=== PATIENT | male | born 1955 | race Caucasian/White ===

== ENCOUNTER 2021-01-06 06:05 | Emergency (ER) | payer MEDICARE, BC, OTHER, SELFPAY ==
[2021-01-06] VITALS (11 sets, daily range): BP systolic 147–169; BP diastolic 94–105; PULSE 94–105; RESP 14–23; TEMP 36.3–36.5; O2SAT 97–100
--- NOTE | 2021-01-06 | ECG_ITS ---
Measurements Intervals [place] Rate: 102 P: 16 MN: 127 QRS: 253 QRSD: 138 T: 42 QT: 364 QTc: 474 Interpretive Statements SINUS TACHYCARDIA RIGHT AXIS DEVIATION RIGHT BUNDLE BRANCH BLOCK BASELINE ARTIFACT- I, III, AVL, V2 ABNORMAL ECG Electronically Signed On 01-06-2021 11:02:55 SECURITIES SUPERVISOR by Santana Rios D.O.
--- NOTE | ~2021-01-06 | XR_ITS ---
EXAMINATION: XR chest 1V portable DATE: 01/06/2021 06:26 INDICATION: Stroke. TECHNIQUE: A single frontal view of the chest was obtained. COMPARISON: Chest 2 views 08/12/2008 FINDINGS: The chest demonstrates clear lungs without pneumonia, pleural effusion, or pneumothorax. Th e heart size is normal. IMPRESSION: 1. No acute cardiopulmonary disease. Reviewed, dictated and finalized at location A. ENDER SERVER
--- NOTE | ~2021-01-06 | CT_ITS ---
EXAMINATION: CT brain wo con DATE: 01/06/2021 06:15 INDICATION: Stroke. TECHNIQUE: Computed tomography (CT) of the head was performed without intravenous contrast. The mA wa s adjusted according to patient size. Iterative reconstruction technique was employed. The dose-lengt h product was 756.67 mGy-cm. COMPARISON: None FINDINGS: There is mild motion artifact. There is an old infarct involving the right caudate nucleus and right internal capsule. There are scattered areas of low attenuation in the cerebral white matter , which is within normal limits for the patient's age. There is no intracranial hemorrhage, acute inf arction, or abnormal intracranial mass lesion. There is mild ex vacuo dilatation of body of right lat eral ventricle. There is a left mastoid effusion. There is a right otomastoid effusion. There is an o ld blowout fracture of medial wall left orbit. There is mucosal thickening in the paranasal sinuses. IMPRESSION: 1. 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 Reviewed, dictated and finalized at location A. LE OBIEE DEVELOPER
--- NOTE | 2021-01-06 06:20 | ED.NEUROSD ---
HPI - Neuro Symptoms/Deficit General Chief Complaint: Suspected CVA Stated Complaint: weakness Time Seen by Provider: 01/06/21 06:08 History of Present Illness HPI Narrative: Patient is a 65-year-old male who presents the ER with concerns for strokelike symptoms. Reports symptom onset at 4:50 AM. Reports he had trouble sleeping last night and he had been awake. Reports he suddenly was unable to move his right arm. Patient is not on blood thinners and has no previous history of CVA. He has paralysis of the right upper extremity and right lower extremity as well as right facial droop and slurred speech. Related Data Home Medications Medication Instructions Recorded Confirmed acetaminophen 01/06/21 alogliptin mg 01/06/21 atorvastatin 01/06/21 calcium carbonate-vitamin D3 tablet PO 01/06/21 [Calcium with Vitamin D] docusate calcium mg PO 01/06/21 fluoxetine 01/06/21 hydrochlorothiazide 01/06/21 ipratropium-albuterol [Combivent INHALATION 01/06/21 Respimat] magnesium tablet PO 01/06/21 meloxicam 01/06/21 metformin mg 01/06/21 omeprazole PO 01/06/21 polyethylene glycol 3350 [Miralax] 01/06/21 Allergies Allergy/AdvReac Type Severity Reaction Status Date / Time No Known Allergies Allergy Mild Verified 01/06/21 06:32 Review of Systems Review of Systems: All systems reviewed & are unremarkable except as noted in HPI and below Cardiovascular: Cardiovascular: Denies chest pain, Denies rapid heart rate and Denies leg edema Respiratory: Respiratory: Denies cough, Denies dyspnea and Denies wheezing Gastrointestinal: Gastrointestinal: Denies abdominal pain, Denies diarrhea, Denies nausea and Denies vomiting Musculoskeletal: Musculoskeletal: Denies arthralgias and Denies muscle cramps Neurologic: Reports Abnormal speech present, Denies headache(s), Reports focal weakness and Denies numbness PMFSH Past Medical History Medical History (Updated 01/06/21 @ 07:00 by Vimal Worthington MD) Diabetes Hyperlipidemia Hypertension Surgical History Surgical History (Updated 01/06/21 @ 06:24 by Vimal Worthington MD) History of excision of epidermal inclusion cyst Social History Social History (Updated 01/06/21 @ 06:24 by Vimal Worthington MD) Social History: History of tobacco abuse Exam Narrative: Exam Narrative: GENERAL: Well-appearing, well-nourished, and in no acute distress. HEAD: Normocephalic, atraumatic. EYES: PERRL and EOMI. ENT: Mucous membranes moist. CHEST: Clear to auscultation. No respiratory distress. HEART: Tachycardic and regular. Normal peripheral pulses. ABDOMEN: Soft, nontender, nondistended. EXTREMITIES: Normal range of motion. No edema. SKIN: Warm, dry, no rash. NEURO: Please see quality section of chart for NIH stroke scale which is 13. Patient with paralysis to right upper and lower extremities as well as right facial droop with slurred speech. Unable to perform finger-nose testing and [id number] testing on the right side. Alert and oriented x3. Course Reevaluation(s) Reevaluation #1: Accepted by Dr. Haynes with Neurology and Dr. Bean in the ER at [facility]. Dr. Haynes recommended Labetalol 10mg for elevated BP. Pt educated on risks/benefits for TPA. Date: 01/06/21 Time: 06:58 Vital Signs Vital signs: Vital Signs Temperature 97.4 F L 01/06/21 06:11 Pulse Rate 100 01/06/21 06:11 Respiratory Rate 17 01/06/21 06:11 Blood Pressure 153/104 H 01/06/21 06:11 Pulse Oximetry 99 01/06/21 06:11 Temperature 97.4 F L 01/06/21 06:11 Pulse Rate 94 01/06/21 06:53 Respiratory Rate 19 01/06/21 06:53 Blood Pressure 169/96 H 01/06/21 06:53 Pulse Oximetry 99 01/06/21 06:53 MDM - Neuro Symptoms/Deficit Lab Data Result diagrams: 01/06/21 06:37 01/06/21 06:37 Labs: Lab Results 01/06/21 01/06/21 01/06/21 Range/Units 06:37 06:37 06:37 WBC 15.6 H (4.5-10.0) K/mm3 RBC 5.39 (4.6-6.20) M/mm3 Hgb
--- NOTE | 2021-01-06 06:23 | PC.NURSE ---
Bedside glucose is 278.
[2021-01-06 06:48] LABS: Basophils Absolute Auto 0.1 K/mm3 (0.0-0.1); Basophils Percent Auto 0.8 % (0.2-1.2); Eosinophils Absolute Auto 0.3 K/mm3 (0-0.3); Eosinophils Percent Auto 2.2 % (0-4.4); Hematocrit 46.5 % (42.0-52.0); Hemoglobin 16.2 g/dL (14.0-18.0); Immature Granulocyte Absolute 0.06 K/mm3 (0.00-0.031); Immature Granulocyte Percent A 0.4 % (0-0.5); Lymphocytes Absolute Auto 4.02 K/mm3 (0.9-3.2); Lymphocytes Percent Auto 25.9 % (18.3-44.2); Mean Corpuscular HGB Conc 34.8 g/dl (32-36); Mean Corpuscular Hemoglobin 30.1 pg (26-34); Mean Corpuscular Volume 86.3 fl (80-100); Mean Platelet Volume 9.8 fl (7.4-10.4); Monocytes Absolute Auto 1.4 K/mm3 (0.1-0.6); Monocytes Percent Auto 8.9 % (2.6-8.5); Neutrophils Absolute Auto 9.6 K/mm3 (1.3-6.7); Neutrophils Percent Auto 61.8 % (45.5-73.1); Platelet Count Result 402 k/mm3 (150-375); Red Blood Count 5.39 M/mm3 (4.6-6.20); Red Cell Distribution Width 13.2 % (11.5-14.5); White Blood Count 15.6 K/mm3 (4.5-10.0)
[2021-01-06] MEDS: LABETALOL HCL INJ 100 MG/20 ML VIAL 10 MG IV PUSH (06:49)
[2021-01-06 06:57] LABS: Anion Gap 7 mmol/L (8-16); Blood Urea Nitrogen 16 mg/dL (9-20); Calcium 9.4 mg/dL (8.4-10.2); Carbon Dioxide 28 mmol/L (22-30); Chloride 99 mmol/L (98-107); Estimated CRCL calculation 91 ml/min; Estimated Glomerular Filt Rate > 60; Glucose 270 mg/dL (75-110); Potassium 4.3 mmol/L (3.4-5.0); Sodium 134 mmol/L (137-145)
[2021-01-06 06:58] LABS: INR 0.9; Prothrombin Time 12.6 Seconds (11.1-14.7)
[2021-01-06 06:59] LABS: Partial Thromboplastin Time 28.3 SECONDS (22.3-36.8)
[2021-01-06 07:08] LABS: Troponin I < 0.012 ng/mL (0.000-0.034)
--- NOTE | 2021-01-06 07:10 | PC.NURSE ---
[address] [facility] per give TPA. Patient given TPA per protocol.
[2021-01-06 10:04] LABS: Glucose Point of Care 278 (65-105)
== END 2021-01-06 07:33 | disposition short-term general hospital (02) ==
PROVIDERS: Emergency Provider Emergency Medicine; PCP Family Medicine
DX: I63.9 Cerebral infarction, unspecified (principal); R29.713 NIHSS score 13; E11.9 Type 2 diabetes mellitus without complications; E78.5 Hyperlipidemia, unspecified; I10 Essential (primary) hypertension; Z79.84 Long term (current) use of oral hypoglycemic drugs; Z87.891 Personal history of nicotine dependence
CPT/HCPCS: 36415; 37195; 70450; 71045; 80048; 82948; 84484; 85025; 85610; 85730; 93005; 96374; 99285; J2997

== ENCOUNTER 2022-08-12 13:42 | Emergency (ER) | payer OTHER, BC, SELFPAY ==
--- NOTE | ~2022-08-12 | XR_ITS ---
EXAMINATION: XR chest 2V DATE: 08/12/2022 15:04 INDICATION: Cough and shortness of breath. TECHNIQUE: Frontal and lateral views of the chest were obtained. COMPARISON: Chest single view 01/06/2021 FINDINGS: The chest demonstrates clear lungs without pneumonia, pleural effusion, or pneumothorax. Th e heart size is normal. There is an electronic implant in left anterior chest wall. IMPRESSION: 1. No acute cardiopulmonary disease. Reviewed, dictated and finalized at location A.
[2022-08-12 14:15] VITALS: BP 145/91; PULSE 87; RESP 18; TEMP 36.1; O2SAT 98
--- NOTE | 2022-08-12 15:44 | ED.URI ---
HPI - URI/Sore Throat General Chief Complaint: Upper Respiratory Infection Stated Complaint: cough Time Seen by Provider: 08/12/22 15:24 History of Present Illness HPI Narrative: 67 year old male who smokes 1.5 ppd for 50+ years presents to the ER for evaluation of unproductive cough. States was seen at [place] [facility] for similar symptoms 4 weeks ago. He was told at that time he had pneumonia. Completed a course of ABX. Has not taken any medications for his cough. Regularly takes combivent for his COPD. Related Data Home Medications Medication Instructions Recorded Confirmed acetaminophen 325 mg tablet 01/06/21 alogliptin 25 mg tablet mg 01/06/21 atorvastatin 20 mg tablet 01/06/21 calcium carbonate 600 mg-vitamin tablet PO 01/06/21 D3 10 mcg (400 unit) tablet (Calcium with Vitamin D) docusate calcium 50 mg capsule mg PO 01/06/21 fluoxetine 01/06/21 hydrochlorothiazide 25 mg tablet 01/06/21 ipratropium 20 mcg-albuterol 100 inhalation 01/06/21 mcg/actuation mist for inhalation (Combivent Respimat) magnesium tablet PO 01/06/21 meloxicam 15 mg tablet 01/06/21 metformin 1,000 mg tablet mg 01/06/21 omeprazole 20 mg tablet,delayed PO 01/06/21 release polyethylene glycol 3350 17 gram 01/06/21 oral powder packet (Miralax) Allergies Allergy/AdvReac Type Severity Reaction Status Date / Time No Known Allergies Allergy Mild Verified 01/06/21 06:32 Review of Systems Review of Systems: CONSTITUTIONAL: Denies fever, chills, or sweats. EYES: Denies visual changes, redness, or discharge. ENT: Denies rhinorrhea, congestion, sore throat, or otalgia. CARDIOVASCULAR: Denies chest pain, palpitations, or edema. RESPIRATORY: Reports cough GASTROINTESTINAL: Denies abdominal pain, nausea, vomiting, or diarrhea. GENITOURINARY: Denies dysuria or hematuria. SKIN: Denies rash or itching. MUSCULOSKELETAL: Denies back pain, joint pain, or myalgia. NEUROLOGIC: Denies headache, numbness, dizziness, or weakness. PSYCHIATRIC: Denies anxiety or depression. [facility] Past Medical History Medical History (Updated 08/12/22 @ 17:01 by Norman Garcia, TREATMENT COORDINATOR) Diabetes Hyperlipidemia Hypertension Surgical History Surgical History (Updated 01/06/21 @ 06:24 by Vimal Worthington MD) History of excision of epidermal inclusion cyst Social History Social History (Updated 01/06/21 @ 06:24 by Vimal Worthington MD) Social History: History of tobacco abuse Exam Narrative: GENERAL: Well-appearing, well-nourished, no physical limitations, and in no acute distress. HEAD: Normocephalic, atraumatic. EYES: Conjunctivae normal, PERRLA and EOMI. ENT: External nose normal, Nares clear, no rhinorrhea or epistaxis. Mucous membranes moist. Oropharynx without tonsillar hypertrophy exudate or other lesions. External ears normal, bilateral TMs normal bilaterally NECK: Supple. No meningeal signs. No adenopathy or masses. No carotid bruits or JVD CHEST: Clear to auscultation. No respiratory distress. No wheezes rales or rhonchi. HEART: Regular rate and rhythm. No murmur heard. Normal peripheral pulses. EXTREMITIES: Normal range of motion. No edema. Clubbing fingernails SKIN: Warm, dry, no rash. No noted wounds NEURO: No focal deficits. Alert and oriented x3. MAEW. CN's II-XI intact bilaterally PSYCH: Cooperative. Normal mood and affect. Course Vital Signs Vital signs: Vital Signs Temperature 36.1 C L 08/12/22 14:15 Pulse Rate 87 08/12/22 14:15 Respiratory Rate 18 08/12/22 14:15 Blood Pressure 145/91 H 08/12/22 14:15 Pulse Oximetry 98 08/12/22 14:15 Oxygen Delivery Room Air 08/12/22 14:15 Temperature 36.1 C L 08/12/22 14:15 Pulse Rate 86 08/12/22 15:59 Respiratory Rate 18 08/12/22 15:59 Blood Pressure 142/83 H 08/12/22 15:59 Pulse Oximetry 96 08/12/22 15:59 Oxygen Delivery Room Air 08/12/22 14:15 MDM - URI/Sore Throat Lab Data Result diagrams: 08/12/22 15:4
[2022-08-12 15:58] LABS: Basophils Absolute Auto 0.1 K/mm3 (0.0-0.1); Basophils Percent Auto 0.6 % (0.2-1.2); Eosinophils Absolute Auto 0.3 K/mm3 (0-0.3); Eosinophils Percent Auto 2.6 % (0-4.4); Hematocrit 43.7 % (42.0-52.0); Hemoglobin 14.3 g/dL (14.0-18.0); Immature Granulocyte Absolute 0.04 K/mm3 (0.00-0.031); Immature Granulocyte Percent A 0.3 % (0-0.5); Lymphocytes Absolute Auto 3.43 K/mm3 (0.9-3.2); Mean Corpuscular HGB Conc 32.7 g/dl (32-36); Mean Corpuscular Hemoglobin 31.1 pg (26-34); Mean Platelet Volume 9.5 fl (7.4-10.4); Monocytes Absolute Auto 0.9 K/mm3 (0.1-0.6); Monocytes Percent Auto 7.7 % (2.6-8.5); Neutrophils Absolute Auto 7.1 K/mm3 (1.3-6.7); Neutrophils Percent Auto 59.8 % (45.5-73.1); Platelet Count Result 364 k/mm3 (150-375); Red Cell Distribution Width 13.6 % (11.5-14.5); White Blood Count 11.8 K/mm3 (4.5-10.0)
[2022-08-12 15:59] VITALS: BP 142/83; PULSE 86; RESP 18; O2SAT 96
[2022-08-12 16:08] LABS: Anion Gap 10 mmol/L (8-16); Blood Urea Nitrogen 23 mg/dL (9-20); Calcium 9.5 mg/dL (8.4-10.2); Carbon Dioxide 25 mmol/L (22-30); Chloride 105 mmol/L (98-107); Estimated CRCL calculation 78 ml/min; Estimated Glomerular Filt Rate > 60; Glucose 141 mg/dL (65-110); Potassium 4.1 mmol/L (3.4-5.0); Sodium 140 mmol/L (137-145)
[2022-08-12 16:37] LABS: SARS-CoV-2 RNA PCR Negative
[2022-08-12 17:12] VITALS: PULSE 80; RESP 20; O2SAT 95
== END 2022-08-12 17:15 | disposition home or self-care (01) ==
PROVIDERS: Emergency Medicine; Emergency Provider Nurse Practitioner Family
DX: R05.9 Cough, unspecified (principal); Z20.822 Contact with and (suspected) exposure to COVID-19; E11.9 Type 2 diabetes mellitus without complications; E78.5 Hyperlipidemia, unspecified; I10 Essential (primary) hypertension; Z79.84 Long term (current) use of oral hypoglycemic drugs
CPT/HCPCS: 36415; 71046; 80048; 85025; 99283; C9803; U0003; U0005